=== PATIENT | male | born 1945 | race Caucasian/White ===

== ENCOUNTER 2023-05-15 12:25 | Emergency (ER) | payer MEDICARE, OTHER, SELFPAY ==
[2023-05-15 12:47] VITALS: BP 200/96
[2023-05-15 13:10] LABS: % Basophils 0.5 % (0-2); % Eosinophils 1.3 % (0-6); % Immature Granulocytes 0.3 % (0-0.5); % Lymphocytes 20.1 % (20.5-51.1); % Monocytes 10.8 % (1.7-9.3); Absolute Eosinophils 0.1 10^3/uL (0-0.7); Absolute Lymphocytes 1.2 10^3/uL (1.2-3.4); Absolute Monocytes 0.7 10^3/uL (0.1-0.6); Hematocrit 34.5 % (39.0-52.0); Hemoglobin 11.7 g/dL (13.0-18.0); Mean Corp Hgb Conc. 33.9 g/dL (33.0-37.0); Mean Corpuscular Hgb 31.1 pg (27.0-31.0); Mean Corpuscular Volume 91.8 fL (80.0-94.0); Mean Platelet Volume 9.4 fL (7.4-10.4); Nucleated Red Blood Cells % 0 % (-); Platelet Count 161 10^3/uL (130-400); Red Blood Cell Count 3.76 10^6/uL (4.70-6.10); Red Cell Dist. Width 12.7 % (11.5-14.5)
[2023-05-15 13:22] LABS: ALT (SGPT) 25 U/L (0-50); AST (SGOT) 28 U/L (17-59); Albumin 3.7 g/dl (3.5-5.0); Alkaline Phosphatase 70 U/L (38-126); Blood Urea Nitrogen 22 mg/dl (9-20); Calcium 8.8 mg/dl (8.4-10.2); Carbon Dioxide 27 mmol/L (22-30); Chloride 106 mmol/L (98-107); Glucose 93 mg/dl (70-99); Potassium 4.3 mmol/L (3.5-5.1); Sodium 137 mmol/L (135-145); Total Bilirubin 0.8 mg/dl (0.2-1.3); Total Protein 5.9 g/dl (6.3-8.2); eGFR > 60.00
--- NOTE | 2023-05-15 15:50 | ED.GENMED ---
History of Present Illness
General
Chief Complaint: Change in Mental Status
Time Seen by Provider: 05/15/23 15:43
Travel History
Have you had any contact with someone who has COVID-19?: No
Do you have any symptoms of coronavirus? Fever > 100 degrees, chills, cough, shortness of breath, sore throat, loss of taste or smell, muscle aches, or headache?: No
History of Present Illness
History of Present Illness:
78-year-old male with history of A-fib, aortic stenosis s/p open AVR (2013), CHF, hypertension, hyperlipidemia, and GERD presents to the emergency department for evaluation of intermittent confusion and forgetfulness ongoing for the past week.
states that she is having a lot of repetitive conversations with him however this is occurring after conversations earlier in the day, she is not noticing any short-term memory difficulty. Patient denies any complaints. No recent fevers or chills.
Denies any chest pain or trouble breathing.
Past History
Past History
ED Past Medical History: Arrthythmia (Atrial fibrillation/flutter), CHF, HTN, Hypercholesterolemia and Valvular disease (Aortic stenosis)
ED Past Surgical History: Orthopedic (Rotator cuff repair)
Social History
Tobacco: Non-smoker
Drug: None
Personal: Single
Living: with family
Employment: Employed
Family History
Family History: Hypertension
Review of Systems
Review of Systems
Allergies reviewed?: Yes
All Other Systems: ROS reviewed and negative except as documented in HPI and ROS
Phy Exam
Physical Exam
Physical Exam:
GEN: Well appearing, NAD, WDWN
HEENT: Oral mucosa moist, no scleral icterus, no nasal congestion
Cardiac: Regular rate and rhythm, no murmur
Lung: No respiratory distress, no tachypnea
MSK: No gross deformity or injuries
Skin: Good color, no pallor or jaundice, no rashes
Neuro: AO x3; CN II-XII grossly intact. BUE strength 5/5 in all luna, sensation intact and symmetric. BLE strength 5/5 in all luna, sensation intact and symmetric
Psych: Calm, cooperative
Course
Orders/Labs/Results
Orders:
Orders
05/15/23 12:51
Electrocardiogram (*1) Urgent
Reason for Study: Fatigue / Weakness
EKG- Treatment ONCE
05/15/23 12:53
CT Head W/o Iv Contrast Urgent
Comment:
Reason For Exam: confusion which started approx one wk ago
05/15/23 13:02
Complete Blood Count/With Diff Urgent
Comprehensive Metabolic Panel Urgent
05/15/23 15:57
Urinalysis Reflex To Culture Urgent
Date Specimen was Collected: 05/15/23
Time Specimen was Collected: 12:51
Abnormal Lab Results
05/15/23
13:02
RBC 3.76 L 10^6/uL
(4.70-6.10)
Hgb 11.7 L g/dL
(13.0-18.0)
Hct 34.5 L %
(39.0-52.0)
MCH 31.1 H pg
(27.0-31.0)
Absolute Monos (auto) 0.7 H 10^3/uL
(0.1-0.6)
Lymphocytes % 20.1 L %
(20.5-51.1)
Monocytes % 10.8 H %
(1.7-9.3)
BUN 22 H mg/dl
(9-20)
Total Protein 5.9 L g/dl
(6.3-8.2)
05/15/23 13:02
05/15/23 13:02
Vital Signs
Initial and Last Documented VS:
Initial Vital Signs
Temp Pulse Resp BP Pulse Ox
98.0 F 59 16 200/96 98
05/15/23 12:47 05/15/23 12:47 05/15/23 12:47 05/15/23 12:47 05/15/23 12:47
Last Documented Vital Signs
Temp Pulse Resp BP Pulse Ox
98.0 F 63 18 156/89 98
05/15/23 12:47 05/15/23 15:59 05/15/23 15:59 05/15/23 15:59 05/15/23 15:59
MDM/Problems Addressed
MDM/Problems Addressed:
Patient symptoms are likely indicative of gradual cognitive decline versus transient hyper send tensive encephalopathy however would find this less likely given the transient nature of symptoms. He has no focal neurologic deficits on exam and
workup was otherwise unremarkable. Do not feel there is any indication to admit for further stroke workup given that he is fully alert and oriented at this time. No clinical signs compatible with transient global amnesia. Recommend outpatient
primary care follow-up should symptoms progress
*Critical Care Note
Total Time (30-74mins, 75-104mins- exclusive of procedures): Not Applicable
ED Attending Note
-
Portions of this chart may have been created with voice recognition software.� Occasional wrong word or��sound alike� substitutions may have occurred due to the inherent limitations of voice recognition software.
Discharge Plan
Departure
Patient Disposition: Home (Routine Discharge)
Date of Disposition: 05/15/23
Time of Disposition: 16:22
Patient with high blood pressure during this ER visit?: Yes
Discharge Problem:
Forgetfulness, Elevated blood pressure reading
Instructions: BLOOD PRESSURE
Prescriptions:
No Action
multivitamin [Daily Multiple] 1 EACH tablet
1 ea PO DAILY
cholecalciferol (vitamin D3) [Vitamin D3] 2,000 UNIT capsule
4,000 unit PO QPM
cyanocobalamin (vitamin B-12) 1,000 MCG tablet
1,000 mcg PO DAILY
atorvastatin 80 MG tablet
80 mg PO QPM Qty: 30 11RF
Rx Instructions:
Increase atorvastatin to 80 mg (two 40 mg tablets) once a day
loratadine 10 MG tablet
10 mg PO DAILY
coenzyme Q10 [Co Q-10] 100 MG capsule
200 mg PO DAILY
carvedilol [Coreg] 25 mg Tablet
25 mg PO BID
pantoprazole 40 mg Tablet,Delayed Release (Dr/Ec)
40 mg PO QPM
lisinopril 10 mg Tablet
10 mg PO QPM
diazepam 5 mg Tablet
5 mg PO HS PRN (Reason: spasms)
aspirin 81 MG tablet,chewable
81 mg PO QPM
clopidogrel 75 MG tablet
75 mg PO QPM Qty: 0 0RF
Rx Instructions:
restart on Tuesday 11/14
Activity Restrictions/Additional Instructions:
Please have your blood pressure rechecked in the next 1-2 weeks by your primary doctor
Interventions
Interventions:
*Risk Screen - Suicide Last Done: 05/15/23 15:50
*Neglect/Abuse Screening Last Done: 05/15/23 15:50
ED- Fall Risk Assessment Last Done: 05/15/23 15:48
*ED COVID-19 Vaccine History Last Done: 05/15/23 12:47
*Nursing Disposition Last Done: 05/15/23 16:28
ED- Neurological Assessment Last Done: 05/15/23 15:48
ED Swallowing Screen Last Done: 05/15/23 15:48
Discharge Date and Time
Discharge Date/Time: 05/15/23 16:28
[2023-05-15 15:59] VITALS: BP 156/89
[2023-05-15 16:07] LABS: Urine Albumin Negative (Neg - Trace); Urine Bilirubin Negative (Negative); Urine Character Clear (Clear); Urine Color Yellow; Urine Glucose Negative (Negative); Urine Ketone Negative (Negative); Urine Leukocyte Negative (Negative); Urine Nitrite Negative (Negative); Urine Occult Blood Negative (Negative); Urine Specific Gravity 1.015 (<1.030); Urine Urobilinogen 1+ (Neg - 1+)
== END 2023-05-15 16:28 | disposition home or self-care (01) ==
LOC: EMR 12:25
PROVIDERS: Emergency Medicine; EMERGENCY PHYSICIAN Emergency Medicine; FAMILY PHYSICIAN Physician Assistant Medical
DX: R41.3 Other amnesia (principal); R41.0 Disorientation, unspecified; I10 Essential (primary) hypertension
CPT/HCPCS: 99285; 70450; 80053; 81003; 85025; 93005